=== PATIENT | female | born 1980 | race Two or more races ===

== ENCOUNTER 2025-03-21 10:38 | Outpatient (RCR) | payer MEDICAID, SELFPAY ==
--- NOTE | 2025-03-21 11:08 | PTNOTE_ITS ---
PT OP Initial Eval Patient Information Outpatient Physical Therapy Treatment Date: 03/21/25 Visit Reasons: PAIN IN RT KNEE Medical Diagnosis: M23.91 Start of Care: 03/21/25 Date of Onset: 1 yr ago Smoking Status Smoking Status: Never smoker Initial Assessment Subjective: Pt is 44 yr old female who reports R knee pain x1 yr when she fell down stairs. The knee pops when she stands from a chair and when she walks. She points to the medial part of the knee as site of pain. The knee hurts to squat. PMH: appendecomy Imaging: negative for FX Pt goal: to squat and walk better Objective: R knee ArOM: Extension: full Flexion: 110 deg SLR: 65 deg Iris's: positive Valgus stress: positive Patella compression: negative Thessely's: positive Assessment: Pt presents with R knee rotation sensitivity consistent with meniscus irritation/tear. Pt has positive gapping into valgus. Pt not likely going to benefit from skilled therapy to meet goals and has poor rehab potential since there is popping and the high level of pain with rotation and valgus stress. PT recommends further diagnostic imaging such as MRI of R knee. Short Term and Shelter Goals Eval and D/C Treatment Plan Eval and D/C Certification Dates: 03/21/25 to 04/18/25 Procedure Charges OP PT Eval Mod Complex 30 minutes: Yes
== END 2025-04-11 23:59 | disposition home or self-care (01) ==
LOC: CPTX 10:38
PROVIDERS: PCP Nurse Practitioner Family; Referring Provider Nurse Practitioner Family; Visit Provider Nurse Practitioner Family
DX: M25.561 Pain in right knee (principal); M23.91 Unspecified internal derangement of right knee
CPT/HCPCS: 97162